=== PATIENT | female | born 1960 | race Caucasian/White ===

== ENCOUNTER → 2016-07-31 | Outpatient (CLI) | payer BC ==
[~2016-07-31] MED LIST: ASCO10003 PO; BUPRTAB51 PO; CALC-478 PO; CLON1TAB3 PO; HYDR12.55 PO; MONT1TAB3 PO; MULT-506 PO; POTA10CA28 PO; TOPI200T14 PO
--- NOTE | 2016-07-31 14:09 | MAMMOGRAPHY REPORT ---
BILATERAL DIGITAL DIAGNOSTIC MAMMOGRAM TOMOSYNTHESIS WITH CAD: 07/31/2016 CLINICAL HISTORY: Six-month follow-up of possible left breast architectural distortion. History of bilateral reduction mammoplasty. The previous left breast pain has subsided. TECHNIQUE: Breast tomosynthesis in addition to standard 2D mammography was performed. Current study was also evaluated with a Computer Aided Detection (CAD) system. Bilateral CC and MLO 2-D and krysta synthesis images were obtained. COMPARISON: Comparison is made to exams dated: 03/26/2016 ultrasound, 03/26/2016 mammogram - [facility], 06/19/2015 mammogram, and 06/09/2014 mammogram. BREAST COMPOSITION: There are scattered areas of fibroglandular density in both breasts. FINDINGS: There are no suspicious masses, calcifications, or areas of nonsurgical architectural dist ortion noted in either breast. The previously seen area of possible architectural distortion seen w ithin the left medial breast has the appearance of normal fibroglandular tissue on the current exam. There are expected post surgical changes from bilateral reduction mammoplasty. Asymmetries in the left superior breast on the MLO view are stable compared to multiple prior exams. A few scattered bilateral benign-appearing calcifications are again noted. IMPRESSION: ACR BI-RADS CATEGORY 2: BENIGN There is no mammographic evidence of malignancy in either breast. A 1 year screening mammogram is re commended. The patient has been verbally notified of the results. Approximately 10% of breast cancers are not detected with mammography. A negative mammographic repor t should not delay biopsy if a clinically suggestive mass is present. Celi Dejesus M.D. ah/:07/31/2016 11:44:25 Silo Filler: Francy UPTON(Ken)([place]), [facility] letter sent: Normal 1/2 BI-RADS Code: ACR BI-RADS Category 2: Benign
== END | disposition home or self-care (01) ==
LOC: C.MAMM 10:42
PROVIDERS: ATTEND Plastic Surgery
DX: N64.89 Other specified disorders of breast (principal); N64.4 Mastodynia

== ENCOUNTER → 2017-08-06 | Outpatient (CLI) | payer BC ==
--- NOTE | 2017-08-07 14:33 | MAMMOGRAPHY REPORT ---
BILATERAL DIGITAL SCREENING MAMMOGRAM TOMOSYNTHESIS WITH CAD: 08/06/2017 CLINICAL HISTORY: Routine screening. Patient has no complaints. TECHNIQUE: Breast tomosynthesis in addition to standard 2D mammography was performed. Current study was also evaluated with a Computer Aided Detection (CAD) system. COMPARISON: Comparison is made to exams dated: 07/31/2016 mammogram, 03/26/2016 ultrasound, 03/26/2016 mammogram - [facility], 06/19/2015 mammogram, and 06/09/2014 mammogram. BREAST COMPOSITION: There are scattered areas of fibroglandular density in both breasts. FINDINGS: No suspicious masses, calcifications, or areas of architectural distortion are noted in ei ther breast. There has been no significant interval change compared to prior exams. There are expec giovanny post surgical changes from bilateral reduction mammoplasty. Bilateral asymmetries are stable com pared to prior exams. Bilateral benign-appearing calcifications are again noted. IMPRESSION: ACR BI-RADS CATEGORY 2: BENIGN There is no mammographic evidence of malignancy. A 1 year screening mammogram is recommended. The pa tient will receive written notification of the results. Approximately 10% of breast cancers are not detected with mammography. A negative mammographic report should not delay biopsy if a clinically suggestive mass is present. Celi Dejesus M.D. /:08/06/2017 15:47:02 Adjustment Clerk: Jami MIRELES)([place]), [facility] letter sent: Normal 1/2 BI-RADS Code: ACR BI-RADS Category 2: Benign
== END | disposition home or self-care (01) ==
LOC: C.MAMM 12:57
PROVIDERS: ATTEND Physician Assistant
DX: Z12.31 Encounter for screening mammogram for malignant neoplasm of breast (principal)